=== PATIENT | female | born 1980 | race Caucasian/White ===

== ENCOUNTER 2019-02-04 22:40 | Emergency (ER) | payer MEDICAID ==
[2019-02-05] MEDS: ACETAMINOPHEN 500 MG TAB PO (00:47)
[2019-02-05 00:54] LABS: ADD MAN DIFF? NO
[2019-02-05 01:00] LABS: BASOPHIL # 0.1 10^3/ul (0.0-0.1); BASOPHILS % 0.7 % (0.0-2.0); EOSINOPHILS # 0.1 10^3/ul (0.0-0.5); EOSINOPHILS % 1.1 % (0.0-7.0); HEMATOCRIT 36.9 % (37.0-47.0); HEMOGLOBIN 12.2 g/dl (12.0-16.0); LYMPHOCYTES # 2.7 10^3/ul (0.8-2.9); LYMPHOCYTES % 25.3 % (15.0-51.0); MEAN CORPUSCULAR HEMOGLOBIN 28.6 pg (29.0-33.0); MEAN CORPUSCULAR HGB CONC 33.1 g/dl (32.0-37.0); MEAN CORPUSCULAR VOLUME 86.6 fl (82.0-101.0); MONOCYTES % 9.1 % (0.0-11.0); NEUTROPHIL # 6.6 10^3/ul (1.6-7.5); PLATELET COUNT 235 10^3/UL (140-415); RED BLOOD COUNT 4.26 10^6/ul (4.20-5.40); RED CELL DISTRIBUTION WIDTH 13.6 % (11.5-14.5)
[2019-02-05 01:00] LABS: WHITE BLOOD COUNT 10.5 10^3/ul (4.8-10.8)
[2019-02-05 01:17] LABS: ALANINE AMINOTRANSFERASE 20 IU/L (13-69); ALBUMIN 3.8 g/dl (3.3-4.9); ALBUMIN/GLOBULIN RATIO 1.35; ALKALINE PHOSPHATASE 72 IU/L (42-121); AMYLASE 112 U/L (11-123); ANION GAP 7 (5-13); ASPARTATE AMINO TRANSFERASE 24 IU/L (15-46); BILIRUBIN,INDIRECT 0.4 mg/dl (0-1.1); BILIRUBIN,TOTAL 0.4 mg/dl (0.2-1.3); BLOOD UREA NITROGEN 6 mg/dl (7-20); CALCIUM 8.7 mg/dl (8.4-10.2); CARBON DIOXIDE 27 mmol/L (21-31); CHLORIDE 106 mmol/L (97-110); CREATININE 0.61 mg/dl (0.44-1.00); Estimated GFR > 60 mL/min (>60); GLUCOSE 91 mg/dl (70-220); LIPASE 73 U/L (23-300); POTASSIUM 3.7 mmol/L (3.5-5.1); SODIUM 140 mmol/L (135-144); TOTAL PROTEIN 6.6 g/dl (6.1-8.1)
[2019-02-05 01:23] LABS: ADD UMIC NO; UR ASCORBIC ACID 40 mg/dL (NEGATIVE); UR BILIRUBIN (Dip) NEGATIVE (NEGATIVE); UR BLOOD (Dip) NEGATIVE (NEGATIVE); UR CLARITY SLIGHTLY CLOUDY (CLEAR); UR COLOR YELLOW (YELLOW); UR GLUCOSE (Dip) NEGATIVE (NEGATIVE); UR KETONES (Dip) NEGATIVE (NEGATIVE); UR LEUKOCYTE ESTERASE (Dip) NEGATIVE Leu/ul (NEGATIVE); UR NITRITE (Dip) NEGATIVE (NEGATIVE); UR RBC 1 /HPF (0-5); UR SPECIFIC GRAVITY (Dip) 1.009 (1.003-1.030); UR SQUAMOUS EPITHELIAL CELL FEW /HPF (FEW); UR TOTAL PROTEIN (Dip) NEGATIVE (NEGATIVE); UR UROBILINOGEN (Dip) NEGATIVE (NEGATIVE); UR WBC 1 /HPF (0-5)
== END 2019-02-05 03:23 | disposition home or self-care (01) ==
LOC: FTE 22:40
DX: O02.1 Missed abortion (principal); R10.2 Pelvic and perineal pain
CPT/HCPCS: 36415; 76801; 76817; 80053; 81001; 81003; 82150; 83690; 84702; 85025; 86900; 86901; 87086; 99284-25

== ENCOUNTER 2019-02-06 02:09 | Inpatient (IN) | payer MEDICAID ==
[2019-02-06] MEDS: SOD CHLORIDE 0.9% 1,000 ML IV (02:24)
[2019-02-06 02:53] LABS: ADD MAN DIFF? NO
[2019-02-06 02:54] LABS: WHITE BLOOD COUNT 9.9 10^3/ul (4.8-10.8)
[2019-02-06 02:54] LABS: BASOPHIL # 0.1 10^3/ul (0.0-0.1); BASOPHILS % 0.7 % (0.0-2.0); EOSINOPHILS # 0.1 10^3/ul (0.0-0.5); EOSINOPHILS % 1.2 % (0.0-7.0); HEMOGLOBIN 8.8 g/dl (12.0-16.0); LYMPHOCYTES # 2.7 10^3/ul (0.8-2.9); LYMPHOCYTES % 27.3 % (15.0-51.0); MEAN CORPUSCULAR HEMOGLOBIN 29.1 pg (29.0-33.0); MEAN CORPUSCULAR HGB CONC 32.6 g/dl (32.0-37.0); MEAN CORPUSCULAR VOLUME 89.4 fl (82.0-101.0); MEAN PLATELET VOLUME 10.2 fl (7.4-10.4); MONOCYTE # 0.7 10^3/ul (0.3-0.9); MONOCYTES % 6.6 % (0.0-11.0); NEUTROPHIL # 6.2 10^3/ul (1.6-7.5); PLATELET COUNT 159 10^3/UL (140-415); RED BLOOD COUNT 3.02 10^6/ul (4.20-5.40); RED CELL DISTRIBUTION WIDTH 13.5 % (11.5-14.5)
[2019-02-06] MEDS: SOD CHLORIDE 0.9% 0 ML IV (03:45)
[2019-02-06 03:53] LABS: IMMEDIATE SPIN CROSSMATCH 1 1
[2019-02-06] MEDS ORDERED: ONDANSETRON 4 MG INJ IV (04:00)
[2019-02-06] MEDS ORDERED: ACETAMINOPHEN 325 MG TAB PO (04:00)
[2019-02-06] MEDS: METHYLERGONOVINE 0.2 MG INJ IM (04:42)
[2019-02-06] MEDS: OXYTOCIN 10 UNIT INJ IM (04:43)
[2019-02-06 04:46] LABS: ADD UMIC YES; UR ASCORBIC ACID NEGATIVE (NEGATIVE); UR BACTERIA FEW /HPF (NONE SEEN); UR BILIRUBIN (Dip) NEGATIVE (NEGATIVE); UR BLOOD (Dip) 3+ mg/dL (NEGATIVE); UR CLARITY CLOUDY (CLEAR); UR COLOR RED (YELLOW); UR GLUCOSE (Dip) NEGATIVE (NEGATIVE); UR KETONES (Dip) NEGATIVE (NEGATIVE); UR LEUKOCYTE ESTERASE (Dip) NEGATIVE Leu/ul (NEGATIVE); UR NITRITE (Dip) NEGATIVE (NEGATIVE); UR RBC > 182 /HPF (0-5); UR SPECIFIC GRAVITY (Dip) 1.008 (1.003-1.030); UR SQUAMOUS EPITHELIAL CELL FEW /HPF (FEW); UR TOTAL PROTEIN (Dip) 2+ mg/dl (NEGATIVE); UR UROBILINOGEN (Dip) NEGATIVE (NEGATIVE); UR WBC 3 /HPF (0-5)
[2019-02-06] MEDS: DOXYCYCLINE 100 MG in SOD CHLORIDE 0.9% 250 ML IVPB (05:06)
[2019-02-06] MEDS: LACTATED RINGER'S 1,000 ML IV ×3 (05:06→18:52)
[2019-02-06] MEDS ORDERED: CEFAZOLIN 1 GM INJ (06:19)
[2019-02-06] MEDS ORDERED: PROPOFOL 20 ML (06:19)
[2019-02-06] MEDS ORDERED: MIDAZOLAM 1 MG/ML 2 ML INJ (06:20)
[2019-02-06] MEDS ORDERED: KETOROLAC 30 MG INJ (06:21)
[2019-02-06] MEDS ORDERED: METOCLOPRAMIDE 10 MG INJ (06:21)
[2019-02-06] MEDS ORDERED: ONDANSETRON 4 MG INJ (06:21)
[2019-02-06] MEDS ORDERED: FENTAnyl 50 MCG/ML VIAL (06:23)
[2019-02-06] MEDS ORDERED: FENTAnyl 50 MCG/ML VIAL IV ×3 (06:30)
[2019-02-06] MEDS ORDERED: HYDROmorphONE 1 MG/5 ML IV SYRINGE IV ×3 (06:30)
[2019-02-06] MEDS ORDERED: KETOROLAC 30 MG INJ IV (06:30)
[2019-02-06] MEDS ORDERED: EPHEDrine 25 MG/5 ML SYG ×2 (06:37→07:01)
[2019-02-06] MEDS ORDERED: OXYTOCIN 10 UNIT INJ ×2 (06:43→06:46)
[2019-02-06] MEDS ORDERED: SILVER NITRATE SWAB (06:44)
[2019-02-06] MEDS ORDERED: METHYLERGONOVINE 0.2 MG INJ (06:51)
[2019-02-06] MEDS ORDERED: HYDROCODONE/APAP (5/325) TAB PO ×2 (07:30→10:30)
[2019-02-06] MEDS ORDERED: MISOPROSTOL 200 MCG TAB PR (07:30)
[2019-02-06] MEDS ORDERED: METHYLERGONOVINE 0.2 MG INJ IM (07:30)
[2019-02-06] MEDS ORDERED: IBUPROFEN 600 MG TAB PO (07:30)
[2019-02-06] MEDS: OXYTOCIN 30 UNITS/LR 500 ML IV (08:33)
[2019-02-06] MEDS: FERROUS SULFATE (EC) 325 MG TAB PO (11:26)
[2019-02-06] MEDS: IBUPROFEN 600 MG TAB PO ×2 (11:26→17:40)
[2019-02-06] MEDS: METHYLERGONOVINE 0.2 MG TAB PO ×2 (13:48→22:08)
[2019-02-06 20:30] LABS: ADD MAN DIFF? NO
[2019-02-06 20:32] LABS: WHITE BLOOD COUNT 9.9 10^3/ul (4.8-10.8)
[2019-02-06 20:32] LABS: BASOPHIL # 0.1 10^3/ul (0.0-0.1); BASOPHILS % 0.6 % (0.0-2.0); EOSINOPHILS # 0.3 10^3/ul (0.0-0.5); EOSINOPHILS % 2.7 % (0.0-7.0); HEMATOCRIT 27.2 % (37.0-47.0); LYMPHOCYTES # 2.4 10^3/ul (0.8-2.9); MEAN CORPUSCULAR HEMOGLOBIN 29.4 pg (29.0-33.0); MEAN CORPUSCULAR HGB CONC 33.1 g/dl (32.0-37.0); MEAN CORPUSCULAR VOLUME 88.9 fl (82.0-101.0); MEAN PLATELET VOLUME 10.1 fl (7.4-10.4); MONOCYTE # 0.8 10^3/ul (0.3-0.9); MONOCYTES % 7.9 % (0.0-11.0); NEUTROPHIL # 6.3 10^3/ul (1.6-7.5); NEUTROPHILS % 63.9 % (39.0-77.0); PLATELET COUNT 174 10^3/UL (140-415); RED BLOOD COUNT 3.06 10^6/ul (4.20-5.40); RED CELL DISTRIBUTION WIDTH 14.4 % (11.5-14.5)
[2019-02-07] MEDS: LACTATED RINGER'S 1,000 ML IV ×3 (03:46→20:18)
[2019-02-07] MEDS: IBUPROFEN 600 MG TAB PO ×4 (05:52→18:19)
[2019-02-07] MEDS: METHYLERGONOVINE 0.2 MG TAB PO ×3 (10:05→20:30)
[2019-02-07] MEDS: FERROUS SULFATE (EC) 325 MG TAB PO (10:06)
[2019-02-08] MEDS: LACTATED RINGER'S 1,000 ML IV ×2 (04:18→12:18)
[2019-02-08] MEDS: IBUPROFEN 600 MG TAB PO ×3 (06:00→10:43)
[2019-02-08] MEDS: FERROUS SULFATE (EC) 325 MG TAB PO (09:10)
[2019-02-08] MEDS: METHYLERGONOVINE 0.2 MG TAB PO ×2 (09:10→13:05)
[2019-02-08] MEDS: MAGNESIUM HYDROXIDE 30ML CUP PO (15:06)
== END 2019-02-08 15:14 | disposition home or self-care (01) | DRG 770 ==
LOC: E/R 02:09 → REC 03:41 → PP2 10:10
PROVIDERS: Obstetrics & Gynecology Obstetrics; Pediatrics
PROC: 10D17ZZ Extraction of Products of Conception, Retained, Via Natural or Artificial Opening (ICD-10-PCS; principal; 2019-02-06 06:00)
DX: O07.1 Delayed or excessive hemorrhage following failed attempted termination of pregnancy (principal); I95.89 Other hypotension; E86.1 Hypovolemia
CPT/HCPCS: 36415; 36430; 76801; 81001; 84702; 85025; 86850; 86900; 86901; 86920; 88305; 99285-25